=== PATIENT | female | born 1990 | race Caucasian/White ===

== ENCOUNTER 2020-02-12 15:52 | Outpatient (CLI) | payer OTHER, SELFPAY ==
--- NOTE | ~2020-02-12 | US_ITS ---
EXAMINATION: US OB <=14 wk fetus w TV DATE: 02/12/2020 16:42 INDICATION: First trimester dating and viability assessment TECHNIQUE: Real-time pelvic transabdominal and transvaginal ultrasound was performed. COMPARISON: None. FINDINGS: The uterus measures 8.7 x 5.2 x 5.8 cm. There is an intrauterine gestational sac. A yolk s ac is identified. heart motion is identified measuring 144 beats per minute (bpm) by M-mode Dop pler. The crown rump length measures 1.2 cm , which correlates with an estimated gestational ag e of 8 weeks and 0 day(s) (+/-) 4 day(s). The right ovary measures 4.2 x 2.8 x 2.9 cm. The left ovary measures 3.0 x 1.4 x 1.6 cm. There is no free fluid in the pelvis. IMPRESSION: 1. Live intrauterine with an estimated gestational age of 8 weeks and 0 day(s) (+/-) 4 day( s) and an estimated delivery date of 09/23/2020. Reviewed, dictated and finalized at location A. IMPRESSION: 1. Live intrauterine with an estimated gestational age of 8 weeks and 0 day(s) (+/-) 4 day(s) and an estimated delivery date of 09/23/2020.
== END 2020-02-12 15:53 | disposition home or self-care (01) ==
PROVIDERS: PCP Internal Medicine; Visit Provider Obstetrics & Gynecology Gynecology
DX: Z36.89 Encounter for other specified antenatal screening (principal); N96 Recurrent pregnancy loss; Z3A.08 8 weeks gestation of pregnancy
CPT/HCPCS: 76801; 76817

== ENCOUNTER → 2020-04-25 15:13 | Outpatient (CLI) | payer OTHER, SELFPAY ==
--- NOTE | ~2020-04-25 | US_ITS ---
EXAMINATION: US OB /maternal detail DATE: 04/25/2020 15:53 INDICATION: survey TECHNIQUE: Multiple obstetric sonographic images performed. FINDINGS: 02/12/2020 There is a single living fetus in breech presentation. The placenta is anterior without placenta pre via. Amniotic fluid volume is subjectively normal. cardiac activity and movement is noted with a heart rate of 167 beats per minute. The following anatomy was identified as normal: 4 chamber heart (ventricular outflow tracts not visualized due to early gestation age.) 3 vessel cord cord insertion kidneys urinary bladder stomach spine diaphragm ventricles cisterna magna cerebellum The following biometric data were obtained: BPD: 43mm corresponds to gestational age 19 weeks 0 days. Head circumference: 161 mm corresponds to gestational age 19 weeks 0 days. Abdominal circumference: 122 mm corresponds to gestational age 17 weeks 6 days. Femur length: 26 mm corresponds to gestational age 17 weeks 6 days. Head circumference to abdominal circumference ratio: 1.32 (normal range for expected gestational age is 1.08-1.27). Estimated weight: 220 grams +/- 33 grams using Hadlock method. IMPRESSION: 1: Single living intrauterine with an estimated gestational age of 18weeks 3days by initial ultrasound measurements, with an EDC of 09/23/2020 in breech presentation. 2. Survey limited for evaluation of ventricular outflow tracts. Otherwise, survey unremarkable . Reviewed, dictated and finalized at location A. IMPRESSION: 1: Single living intrauterine with an estimated gestational age of 18 weeks 3days by initial ultrasound measurements, with an EDC of 09/23/2020 in br eech presentation. 2. Survey limited for evaluation of ventricular outflow tracts. Otherwise, fet al survey unremarkable.
== END ==
PROVIDERS: Visit Provider Obstetrics & Gynecology Gynecology
DX: Z36.89 Encounter for other specified antenatal screening (principal); Z3A.18 18 weeks gestation of pregnancy
CPT/HCPCS: 76805

== ENCOUNTER → 2020-05-26 15:25 | Outpatient (CLI) | payer OTHER, SELFPAY ==
--- NOTE | ~2020-05-26 | US_ITS ---
US OB limited 05/26/2020 15:50 Indication: Evaluate ventricular outflow tracts, not seen on prior screening examination Procedure: High-resolution Limited obstetrical ultrasound Comparison: 04/25/2020 Findings: There is a single living intrauterine in vertex presentation. heart rate is 161 bpm. Placenta is anterior without previa. Amniotic fluid is subjectively normal. Ventricular out flow tracts are within normal limits. Impression: 1: Single living intrauterine in vertex presentation. 2: Normal four-chamber heart and ventricular outflow tracts. Reviewed, dictated and finalized at location A. Impression: 1: Single living intrauterine in vertex presentation. 2: Normal four-chamber heart and ventricular outflow tracts.
== END ==
PROVIDERS: Visit Provider Nurse Practitioner
DX: Z36.9 Encounter for antenatal screening, unspecified (principal); Z3A.00 Weeks of gestation of pregnancy not specified
CPT/HCPCS: 76815

== ENCOUNTER 2020-08-30 20:08 | Inpatient (IN) | payer OTHER, SELFPAY ==
[2020-08-30] VITALS (32 sets, daily range): BP systolic 157–181; BP diastolic 88–119; PULSE 64–86; TEMP 36.9; O2SAT 95–100; BMI 22.4
[2020-08-30 18:23] LABS: Creatinine Urine 162.8 mg/dL
[2020-08-30 18:26] LABS: Add Urine Microscopic? YES; Appearance Urine Clear (Clear); Bacteria Urine 1+ /hpf; Bilirubin Urine Negative (Negative); Blood Urine Negative (Negative); Color Urine Yellow (Yellow); Glucose Urine UA Negative (Negative); Ketones Urine Negative (Negative); Leukocyte Esterase Ur Negative LEU/UL (NEGATIVE); Mucus Urine Rare /lpf; Nitrate Urine Negative (Negative); Protein Urine 3+ mg/dL (Negative); RBC Urine 0-2 /hpf (0-2); Specific Grav Ur 1.019 (1.001-1.035); Squamous Epithelial Cell Urine Rare /hpf (Few); Urobilinogen Urine Negative mg/dL (<2.0); WBC Urine 0-3 /hpf (0-3)
[2020-08-30 18:48] LABS: Total Protein Urine Random > 600 mg/dL
[2020-08-30 18:55] LABS: Basophils Percent Auto 0.4 % (0.2-1.2); Eosinophils Absolute Auto 0.1 K/mm3 (0-0.3); Eosinophils Percent Auto 1.1 % (0-4.4); Hematocrit 35.2 % (37.0-47.0); Hemoglobin 12.4 g/dL (12.0-15.0); Immature Granulocyte Absolute 0.05 K/mm3 (0.00-0.031); Immature Granulocyte Percent A 0.5 % (0-0.5); Lymphocytes Absolute Auto 1.89 K/mm3 (0.9-3.2); Lymphocytes Percent Auto 18.1 % (18.3-44.2); Mean Corpuscular HGB Conc 35.2 g/dl (32-36); Mean Corpuscular Hemoglobin 31.8 pg (26-34); Mean Corpuscular Volume 90.3 fl (80-100); Mean Platelet Volume 12.8 fl (7.4-10.4); Monocytes Absolute Auto 0.9 K/mm3 (0.1-0.6); Monocytes Percent Auto 8.3 % (2.6-8.5); Neutrophils Absolute Auto 7.5 K/mm3 (1.3-6.7); Neutrophils Percent Auto 71.6 % (45.5-73.1); Platelet Count Result 133 k/mm3 (150-375); Red Cell Distribution Width 13.1 % (11.5-14.5); White Blood Count 10.4 K/mm3 (4.5-10.0)
[2020-08-30 19:05] LABS: Alanine Aminotransferase 18 U/L (4-35); Alkaline Phosphatase 182 U/L (38-126); Anion Gap 8 mmol/L (8-16); Aspartate Amino Transferase 36 U/L (14-36); Bilirubin,Total 0.4 mg/dL (0.2-1.3); Blood Urea Nitrogen 8 mg/dL (7-17); Calcium 8.9 mg/dL (8.4-10.2); Carbon Dioxide 21 mmol/L (22-30); Chloride 105 mmol/L (98-107); Estimated Glomerular Filt Rate > 60; Glucose 86 mg/dL (65-105); Potassium 4.1 mmol/L (3.4-5.0); Sodium 134 mmol/L (137-145); Uric Acid 7.6 mg/dL (2.5-7.5)
[2020-08-30] MEDS: LABETALOL HCL INJ 100 MG/20 ML VIAL 20 MG IV PUSH (19:15)
[2020-08-30] MEDS: LABETALOL HCL INJ 100 MG/20 ML VIAL 40 MG IV PUSH ×2 (19:28→19:57)
--- NOTE | 2020-08-30 20:37 | WPDOBADMIT ---
Obstetrics - Admit Note Admission Note: record reviewed. No pertinent additions to the history and/or any subsequent changes in the physical findings that are not consistent with the expected course of the were found. Additions to the history and/or subsequent changes in the physical findings follow. Sent from office with elevated BP's. Patient with no PIH symptoms. Good FM. BP's decreased with HTN protocol of labetalol. Labs with increased protein in urine and elevated uric acid. Recommend delivery. Cervadil tonight and high dose pitocin in am.
[2020-08-30] MEDS: LABETALOL HCL 100 MG TABLET PO (20:47)
[2020-08-30] MEDS: AMPICILLIN 2 GM/NS 100 ML 2 GM/100 ML BAG IVPB (20:48)
[2020-08-30] MEDS: LACTATED RINGERS 1,000 ML 125 ML IV CONT (20:49)
[2020-08-30] MEDS: NIFEdipine 30 MG TAB.ER.24 PO (21:18)
[2020-08-30] MEDS: DINOPROSTONE 10 MG VAG INSERT VAGINAL (21:36)
[2020-08-30] MEDS: ZOLPIDEM TARTRATE (*CRX) 5 MG TABLET PO (22:34)
[2020-08-30] MEDS: FAMOTIDINE 20 MG/2 ML VIAL IV PUSH (22:51)
[2020-08-30] MEDS: hydrALAZINE HCL 20 MG/ML VIAL 5 MG IV PUSH (23:46)
[2020-08-31] VITALS (208 sets, daily range): BP systolic 124–173; BP diastolic 60–121; PULSE 27–137; RESP 16–18; TEMP 36.6–37.9; O2SAT 81–100
[2020-08-31] MEDS: hydrALAZINE HCL 20 MG/ML VIAL 10 MG IV PUSH (00:18)
--- NOTE | 2020-08-31 00:23 | LDADM ---
This patient, Freya Castellanos, was admitted to Labor/Delivery/Recovery 107 on 08/30/20 at 20:08. Plans for labor, pain management and were discussed with patient. Patient/family oriented to hospital policies and general routines including ID bracelet, bed and alarms, visiting hours, pain management, procedures, bathroom and other care routines, personal items, smoking policy, room service/diet and guest tray routines, security routines, and visiting hours. Patient/Family are encouraged to report perceived risks to care and to ask questions if they do not understand what they are told or what they should do. See OBIX for further documentation.
[2020-08-31] MEDS: LABETALOL HCL 100 MG TABLET PO ×6 (00:58→21:31)
[2020-08-31] MEDS: AMPICILLIN 1 GM/NS 50 ML 1 GM/50 ML BAG IVPB ×6 (00:59→21:31)
[2020-08-31] MEDS: fentaNYL CITRATE INJ (*CRX) 100 MCG/2 ML VIAL 50 MCG IV PUSH ×2 (01:06→03:45)
[2020-08-31] MEDS: ONDANSETRON INJ 4 MG/2 ML VIAL IV PUSH (05:13)
--- NOTE | 2020-08-31 07:49 | PM.OBPNLAB ---
Pain Control Date/time seen: 08/31/20 07:[address] one dose of cytotec 25mcg then plan AROM and pitocin at noon.
[2020-08-31] MEDS: miSOPROStol 25 MCG TABLET VAGINAL (08:28)
[2020-08-31 08:53] LABS: Rapid Plasma Reagin Non-Reactive (NonReactive)
[2020-08-31] MEDS: OXYTOCIN 30 UNITS/NS 500 ML 30 UNITS/500 ML BAG IV CONT (13:09)
--- NOTE | 2020-08-31 14:34 | WPDANESEPP ---
Anes - Eval Pre Procedure Procedure: Labor Epidural Date/Time: 08/31/20 14:34 Pre Op Diagnosis: [facility] Patient Data Age: 30 Gender: F Height: 1.7 m Weight: 115.7 kg Last Vital Signs Temp 37.2 C 08/31/20 14:30 Pulse 85 08/31/20 14:32 Resp 18 08/31/20 12:48 BP 153/94 H 08/31/20 14:32 Pulse Ox 97 08/30/20 21:15 Allergies Allergy/AdvReac Type Severity Reaction Status Date / Time No Known Allergies Allergy Verified 08/24/20 14:28 Home Medications Medication Instructions Recorded Confirmed Type ergocalciferol (vitamin D2) 1,250 mcg PO WEEKLY 08/24/20 08/24/20 History [Vitamin D2] prenat.vits,mirna,[id number] 1 tablet PO DAILY 08/24/20 08/24/20 History [ #2] Laboratory Tests 08/30/20 08/30/20 08/30/20 17:49 17:49 17:49 WBC 10.4 K/mm3 H K/mm3 (4.5-10.0) RBC 3.90 M/mm3 L M/mm3 (4.2-5.4) Hgb 12.4 g/dL g/dL (12.0-15.0) Hct 35.2 % L % (37.0-47.0) MCV 90.3 fl fl (80-100) MCH 31.8 pg pg (26-34) MCHC 35.2 g/dl g/dl (32-36) RDW 13.1 % % (11.5-14.5) Plt Count 133 k/mm3 L k/mm3 (150-375) MPV 12.8 fl H fl (7.4-10.4) Immature Gran % (Auto) 0.5 % % (0-0.5) Neut % (Auto) 71.6 % % (45.5-73.1) Lymph % (Auto) 18.1 % L % (18.3-44.2) [place] % (Auto) 8.3 % % (2.6-8.5) Eos % (Auto) 1.1 % % (0-4.4) Baso % (Auto) 0.4 % % (0.2-1.2) Lymph # (Auto) 1.89 K/mm3 K/mm3 (0.9-3.2) [place] # (Auto) 0.9 K/mm3 H K/mm3 (0.1-0.6) Eos # (Auto) 0.1 K/mm3 K/mm3 (0-0.3) Baso # (Auto) 0.0 K/mm3 K/mm3 (0.0-0.1) Abs Immat Gran (auto) 0.05 K/mm3 H K/mm3 (0.00-0.031) Absolute Neuts (auto) 7.5 K/mm3 H K/mm3 (1.3-6.7) Absolute Nucleated RBC 0.0 K/mm3 K/mm3 (0.0-0.012) Nucleated RBC % 0.0 % % (0.0-0.2) Sodium Potassium Chloride Carbon Dioxide Anion Gap BUN Creatinine Estim Creat Clear Calc Estimated GFR Glucose Uric Acid Calcium Total Bilirubin AST ALT Alkaline Phosphatase Total Protein Albumin Urine Color Yellow (Yellow) Urine Appearance Clear (Clear) Urine pH 6.0 (5.0-9.0) Ur Specific [place] 1.019 (1.001-1.035) Urine Protein 3+ mg/dL H mg/dL (Negative) Urine Glucose (UA) Negative mg/dL mg/dL (Negative) Urine Ketones Negative mg/dL mg/dL (Negative) Ur Blood (Man) Negative (Negative) Urine Nitrate Negative (Negative) Urine Bilirubin Negative (Negative) Urine Urobilinogen Negative mg/dL mg/dL (<2.0) Ur Leukocyte Esterase Negative SEFERINO/UL SEFERINO/UL (NEGATIVE) Urine RBC 0-2 /hpf /hpf (0-2) Urine WBC 0-3 /hpf /hpf (0-3) Ur Squamous Epith Cells Rare /hpf /hpf (Few) Urine Bacteria 1+ /hpf H /hpf Urine Mucus Rare /lpf /lpf U Random Total Protein > 600 mg/dL mg/dL Urine Creatinine 162.8 mg/dL mg/dL RPR Blood Type Antibody Screen 08/30/20 08/30/20 08/30/20 17:49 18:43 18:43 WBC RBC Hgb Hct MCV MCH MCHC RDW Plt Count MPV Immature Gran % (Auto) Neut % (Auto) Lymph % (Auto) [place] % (Auto) Eos % (Auto) Baso % (Auto) Lymph # (Auto) [place] # (Auto) Eos # (Auto) Baso # (Auto) Abs Immat Gran (auto) Absolute Neuts (auto)
[2020-08-31] MEDS: LACTATED RINGERS 1,000 ML 125 ML IV CONT (15:30)
[2020-08-31] MEDS: FAMOTIDINE 20 MG/2 ML VIAL IV PUSH (20:16)
[2020-09-01] VITALS (20 sets, daily range): BP systolic 106–167; BP diastolic 70–116; PULSE 69–132; RESP 16–18; TEMP 36.6–37.3; O2SAT 95–100
--- NOTE | 2020-09-01 00:46 | PM.OBPRVD ---
OB - Delivery Note Procedure Delivery date: 09/01/20 events: Pre-Eclampsia Intrapartal events: Ineffective Pushing Induction method: AROM, per misoprostol protocol, per pitocin protocol and per cervidil protocol Delivery monitor: external FHT, external uterine and internal uterine Route of delivery: forceps Indication for instrumentation: maternal exhaustion Laceration Description: Vaginal - 2nd Degree Delivery repair: vicryl Estimated blood loss (mL): 400 Anesthesia type: Epidural Disposition: floor Baby Date of : 09/01/20 Time of : 12:04 Weeks of gestation at delivery: 36 gender: Male Weight (pounds): 6 Weight (ounces): 7 presentation: vertex position: Right Occiput Anterior Placenta delivery description: Spontaneous cord vessel description: 3 Vessels and Clamped/Cut score one minute: 8 score five minutes: 9
[2020-09-01] MEDS: OXYTOCIN 30 UNITS/NS 500 ML 30 UNITS/500 ML BAG 125 UNITS IV CONT (00:47)
[2020-09-01] MEDS: ACETAMINOPHEN 325 MG TABLET 650 MG PO ×2 (01:43→10:52)
[2020-09-01] MEDS: LABETALOL HCL 100 MG TABLET PO ×2 (01:43→05:50)
[2020-09-01] MEDS: BENZOCAINE 20% AER SPR (*SP) 56 GM CAN 1 SPRAY TOPICAL (02:47)
[2020-09-01] MEDS: WITCH HAZEL 40 PADS 1 PAD TOPICAL (02:47)
[2020-09-01] MEDS: MAGNESIUM SULF 20GM/WATER500ML 500 ML 50 MG IV CONT (03:00)
--- NOTE | 2020-09-01 04:16 | PC.NURSE ---
Placenta to go to [facility] for pathology review.
[2020-09-01] MEDS: LACTATED RINGERS 1,000 ML 125 ML ×2 (07:30→14:30)
--- NOTE | 2020-09-01 07:30 | PC.NURSE ---
PT introductions made and plan of care discussed per post , PIH, magnesium sulfate administration, daily care activities, pumping, baby at [facility] and pain management. PT verbalized understanding of such care
--- NOTE | 2020-09-01 07:31 | WPDANLDPN2 ---
Anes-Prog Note L&D Date/Time: 09/01/20 07:31 Comfortable throughout: labor and delivery Neuraxial method: epidural Epidural/Spinal procedure site: clean & non-tender Neuro status: Neuro function grossly intact. Cardiovascular status: normal Respiratory status: normal Airway patency: baseline Mental status: baseline Post-Op hydration status: normal Vital Signs: Last Vital Signs Temp 36.8 C 09/01/20 03:15 Pulse 85 09/01/20 05:50 Resp 16 09/01/20 03:15 BP 139/92 H 09/01/20 03:15 Pulse Ox 97 09/01/20 00:00 Pain score (VAS): 11/06 I/O: Intake & Output 08/31/20 08/31/20 09/01/20 15:59 23:59 07:59 Intake Total 1674 627 [id number] Output Total 1025 Balance 1100 100 275 Post-procedural complaints: none Patient feedback: Patient satisfied with anesthetic care.
--- NOTE | 2020-09-01 07:51 | PM.OBPNVD ---
OB - PN: Subj Subjective Date/time seen: 09/01/20 07:51 Patient comments: pain well controlled and other (lightheaded this am ) baby status: NICU (doing well) OB - PN: Obj Data Labs CBC & Chem 7: 08/30/20 17:49 08/30/20 17:49 Labs: Laboratory Results - last 24 hr 08/30/20 18:43 RPR Non-reactive OB - PN A/P Assessment and Plan (1) (normal spontaneous vaginal delivery): Code(s): O80 - Encounter for full-term uncomplicated delivery Status: Acute Assessment and Plan: continue pp care (2) Preeclampsia: Code(s): O14.90 - Unspecified pre-eclampsia, unspecified trimester Status: Acute Assessment and Plan: BP stable on Labetalol 100mg q 4. Will try to barreto to q 6. Continue Magnesium and close monitoring. Time Spent With Patient Time: Total time spent is greater than 50% in coordination of care (as documented) at patient's floor/unit and/or counseling patient: Exam : Bimanual exam- vagina & uterus: other (Uterus firm, nt @U)
[2020-09-01] MEDS: DOCUSATE SODIUM 100 MG CAPSULE (10:50)
[2020-09-01] MEDS: IBUPROFEN 600 MG TABLET PO ×3 (10:51→23:50)
[2020-09-01] MEDS: MULTIVIT/MIN/PREN/FOL AC/IRON TABLET 1 TAB PO (10:51)
[2020-09-01] MEDS: POLYSACCHARIDE IRON COMPLEX 150 MG CAPSULE PO ×2 (10:53→16:42)
[2020-09-01] MEDS: LANOLIN (LANSINOH) 7.5 GM CREAM 1 APPLIC TOPICAL (10:54)
[2020-09-01] MEDS: miSOPROStol 200 MCG TABLET 800 MCG (11:40)
--- NOTE | 2020-09-01 11:40 | PC.NURSE ---
Nacho Joiner RN L&D arrived upon request to help with expelling clots and massaging uterus. Aware of Dr Vallecillo's orders for pitocin and cytotec. 800mcg of cytotec was placed rectally with out difficulty. Pad weighed and pitocin hung. PT alert and awake and pt care was explained to pt and to renny through the care.
[2020-09-01 12:13] LABS: Basophils Absolute Auto 0.1 K/mm3 (0.0-0.1); Basophils Percent Auto 0.3 % (0.2-1.2); Hemoglobin 7.2 g/dL (12.0-15.0); Immature Granulocyte Absolute 0.14 K/mm3 (0.00-0.031); Immature Granulocyte Percent A 0.6 % (0-0.5); Lymphocytes Absolute Auto 1.46 K/mm3 (0.9-3.2); Lymphocytes Percent Auto 6.7 % (18.3-44.2); Mean Corpuscular HGB Conc 34.3 g/dl (32-36); Mean Corpuscular Hemoglobin 32.1 pg (26-34); Mean Corpuscular Volume 93.8 fl (80-100); Mean Platelet Volume 12.1 fl (7.4-10.4); Monocytes Absolute Auto 1.4 K/mm3 (0.1-0.6); Monocytes Percent Auto 6.6 % (2.6-8.5); Neutrophils Absolute Auto 18.6 K/mm3 (1.3-6.7); Neutrophils Percent Auto 85.8 % (45.5-73.1); Platelet Count Result 159 k/mm3 (150-375); Red Blood Count 2.24 M/mm3 (4.2-5.4); Red Cell Distribution Width 13.5 % (11.5-14.5); White Blood Count 21.7 K/mm3 (4.5-10.0)
[2020-09-01 12:37] LABS: Fibrinogen 218 mg/dl (215-510)
[2020-09-01] MEDS: HYDROcodone/acetaminophen (*CRX) 5-325 MG TABLET 1 TAB PO ×2 (12:47→16:43)
[2020-09-01] MEDS: SENNA/DOCUSATE SODIUM TABLET 2 TAB PO (22:01)
[2020-09-02] VITALS (15 sets, daily range): BP systolic 136–170; BP diastolic 74–98; PULSE 75–92; RESP 14–18; TEMP 36.8–38.1; O2SAT 97–100
[2020-09-02 06:15] LABS: Basophils Percent Auto 0.2 % (0.2-1.2); Eosinophils Absolute Auto 0.1 K/mm3 (0-0.3); Eosinophils Percent Auto 0.8 % (0-4.4); Immature Granulocyte Percent A 0.7 % (0-0.5); Lymphocytes Absolute Auto 2.65 K/mm3 (0.9-3.2); Lymphocytes Percent Auto 18.5 % (18.3-44.2); Mean Corpuscular HGB Conc 33.3 g/dl (32-36); Mean Corpuscular Hemoglobin 31.8 pg (26-34); Mean Corpuscular Volume 95.4 fl (80-100); Mean Platelet Volume 12.3 fl (7.4-10.4); Monocytes Absolute Auto 1.2 K/mm3 (0.1-0.6); Monocytes Percent Auto 8.2 % (2.6-8.5); Neutrophils Absolute Auto 10.3 K/mm3 (1.3-6.7); Neutrophils Percent Auto 71.6 % (45.5-73.1); Platelet Count Result 119 k/mm3 (150-375); Red Blood Count 1.73 M/mm3 (4.2-5.4); Red Cell Distribution Width 13.9 % (11.5-14.5); White Blood Count 14.3 K/mm3 (4.5-10.0)
[2020-09-02 06:17] LABS: Hematocrit 16.5 % (37.0-47.0); Hemoglobin 5.5 g/dL (12.0-15.0)
[2020-09-02 06:30] LABS: Fibrinogen 231 mg/dl (215-510)
--- NOTE | 2020-09-02 07:49 | PM.OBPNVD ---
OB - PN: Subj Subjective Date/time seen: 09/02/20 07:49 Patient comments: other (feels better this am) baby status: NICU OB - PN: Obj Data Labs CBC & Chem 7: 09/02/20 05:52 08/30/20 17:49 Labs: Laboratory Results - last 24 hr 09/01/20 09/01/20 09/02/20 11:55 11:56 05:52 WBC 21.7 H 14.3 H RBC 2.24 L 1.73 L Hgb 7.2 L D 5.5 L* Hct 21.0 L 16.5 L* MCV 93.8 95.4 MCH 32.1 31.8 MCHC 34.3 33.3 RDW 13.5 13.9 Plt Count 159 119 L MPV 12.1 H 12.3 H Immature Gran % (Auto) 0.6 H 0.7 H Neut % (Auto) 85.8 H 71.6 Lymph % (Auto) 6.7 L 18.5 [place] % (Auto) 6.6 8.2 Eos % (Auto) 0.0 0.8 Baso % (Auto) 0.3 0.2 Lymph # (Auto) 1.46 2.65 [place] # (Auto) 1.4 H 1.2 H Eos # (Auto) 0.0 0.1 Baso # (Auto) 0.1 0.0 Abs Immat Gran (auto) 0.14 H 0.10 H Absolute Neuts (auto) 18.6 H 10.3 H Absolute Nucleated RBC 0.0 0.0 Nucleated RBC % 0.0 0.0 Fibrinogen 218 09/02/20 05:52 WBC RBC Hgb Hct MCV MCH MCHC RDW Plt Count MPV Immature Gran % (Auto) Neut % (Auto) Lymph % (Auto) [place] % (Auto) Eos % (Auto) Baso % (Auto) Lymph # (Auto) [place] # (Auto) Eos # (Auto) Baso # (Auto) Abs Immat Gran (auto) Absolute Neuts (auto) Absolute Nucleated RBC Nucleated RBC % Fibrinogen 231 OB - PN A/P Assessment and Plan (1) (normal spontaneous vaginal delivery): Code(s): O80 - Encounter for full-term uncomplicated delivery Status: Acute (2) Preeclampsia: Code(s): O14.90 - Unspecified pre-eclampsia, unspecified trimester Status: Acute Assessment and Plan: BP stable diuresis good (3) hemorrhage: Code(s): O72.1 - Other immediate hemorrhage Status: Acute Assessment and Plan: resolved with cytotec and pitocin Hb 5/5 plan 2 units PRBC Time Spent With Patient Time: Total time spent is greater than 50% in coordination of care (as documented) at patient's floor/unit and/or counseling patient: Exam : Bimanual exam- vagina & uterus: other (Uterus firm, nt @U)
[2020-09-02] MEDS: IBUPROFEN 600 MG TABLET PO (08:01)
[2020-09-02] MEDS: POLYSACCHARIDE IRON COMPLEX 150 MG CAPSULE PO ×2 (08:01→16:12)
[2020-09-02] MEDS: MULTIVIT/MIN/PREN/FOL AC/IRON TABLET 1 TAB PO (08:01)
[2020-09-02] MEDS: SODIUM CHLORIDE 0.9% IV 250 ML 30 ML IV CONT (10:00)
[2020-09-02] MEDS: LABETALOL HCL 100 MG TABLET PO ×2 (12:06→17:55)
[2020-09-02] MEDS: ACETAMINOPHEN 325 MG TABLET 650 MG PO ×2 (12:07→20:20)
--- NOTE | 2020-09-02 13:15 | PC.NURSE ---
Patient viewed the discharge video Mother & Baby Care, The First Two Weeks . Patient was given the opportunity and encouraged to ask questions. Patient verbalized understanding of information shared and has been given the mother/baby guide for home reference.
[2020-09-02] MEDS: WITCH HAZEL 40 PADS 1 PAD TOPICAL (16:12)
[2020-09-02] MEDS: BENZOCAINE 20% AER SPR (*SP) 56 GM CAN 1 SPRAY TOPICAL (16:12)
[2020-09-02] MEDS: SENNA/DOCUSATE SODIUM TABLET 2 TAB PO (22:10)
[2020-09-02] MEDS: miSOPROStol 200 MCG TABLET 1000 MCG RECTAL (22:12)
[2020-09-03] VITALS (12 sets, daily range): BP systolic 133–174; BP diastolic 86–112; PULSE 76–100; RESP 15–16; TEMP 36.6–38.2; O2SAT 98–100
[2020-09-03] MEDS: LABETALOL HCL 100 MG TABLET PO ×2 (05:46)
[2020-09-03 06:20] LABS: Hematocrit 23.2 % (37.0-47.0); Mean Corpuscular HGB Conc 34.5 g/dl (32-36); Mean Corpuscular Hemoglobin 31.5 pg (26-34); Mean Corpuscular Volume 91.3 fl (80-100); Mean Platelet Volume 11.1 fl (7.4-10.4); Platelet Count Result 125 k/mm3 (150-375); Red Blood Count 2.54 M/mm3 (4.2-5.4); Red Cell Distribution Width 13.6 % (11.5-14.5); White Blood Count 12.7 K/mm3 (4.5-10.0)
[2020-09-03] MEDS: MULTIVIT/MIN/PREN/FOL AC/IRON TABLET 1 TAB PO (07:36)
[2020-09-03] MEDS: POLYSACCHARIDE IRON COMPLEX 150 MG CAPSULE PO (07:36)
[2020-09-03] MEDS: IBUPROFEN 600 MG TABLET PO (07:39)
--- NOTE | 2020-09-03 09:55 | PM.OBPNVD ---
OB - PN: Subj Subjective Date/time seen: 09/03/20 09:55 Patient comments: no complaints baby status: NICU OB - PN: Obj Data Labs CBC & Chem 7: 09/03/20 05:45 08/30/20 17:49 Labs: Laboratory Results - last 24 hr 08/30/20 09/03/20 18:43 05:45 WBC 12.7 H RBC 2.54 L Hgb 8.0 L Hct 23.2 L MCV 91.3 MCH 31.5 MCHC 34.5 RDW 13.6 Plt Count 125 L MPV 11.1 H Blood Type O Positive Antibody Screen Negative Crossmatch See Detail OB - PN A/P Assessment and Plan (1) hemorrhage: Code(s): O72.1 - Other immediate hemorrhage Status: Acute Assessment and Plan: Hb 8 one episode of clot last pm and cytotec given normal pp flow since then recommend iron BID x 8 wks low grade temp during and just after blood transfusion no evidence of infection will call if elevated temp or signs of infection (2) Preeclampsia: Code(s): O14.90 - Unspecified pre-eclampsia, unspecified trimester Status: Acute Assessment and Plan: Good diuresis No symptoms BP increased again change labetalol to 200 mg q6 will check BP several times per day and call if >160/110 follow up in office this Saturday or Saturday (3) (normal spontaneous vaginal delivery): Code(s): O80 - Encounter for full-term uncomplicated delivery Status: Acute Assessment and Plan: stable Plan day: 2 Plan: discharge home Time Spent With Patient Time: Total time spent is greater than 50% in coordination of care (as documented) at patient's floor/unit and/or counseling patient: Exam : Bimanual exam- vagina & uterus: other (Uterus firm, nt @U)
--- NOTE | 2020-09-03 09:59 | PM.OBDSVD ---
DS: Admitting Diagnosis Admitting Diagnosis Admitting Diagnosis: IUP 36 6/7 weeks preeclampsia DS: Discharge Diagnosis Discharge Diagnosis (1) hemorrhage: Code(s): O72.1 - Other immediate hemorrhage Status: Acute (2) Preeclampsia: Code(s): O14.90 - Unspecified pre-eclampsia, unspecified trimester Status: Acute (3) (normal spontaneous vaginal delivery): Code(s): O80 - Encounter for full-term uncomplicated delivery Status: Acute OB - DS: Summary OB Procedures : Ultrasound OB Procedures Intrapartum: Spontaneous Vag Delivery OB Procedures: : Transfusion Peripartum Data Infant Delivery Method: Natural Vaginal Laceration Description: Perineal - 2nd Degree complications: transfusion and uterine atony Status at Discharge Functional status at discharge: independent ambulation Overall status at discharge: patient is progressing back to baseline Time Spent with Patient Time attestation: Total time spent providing and/or coordinating discharge services: DS: Data Data Completed and Pending Labs on day of discharge: Labs from last 24 hours 09/03/20 08/30/20 05:45 18:43 WBC 12.7 H RBC 2.54 L Hgb 8.0 L Hct 23.2 L MCV 91.3 MCH 31.5 MCHC 34.5 RDW 13.6 Plt Count 125 L MPV 11.1 H Blood Type O Positive Antibody Screen Negative Crossmatch See Detail Discharge Plan Discharge Attending physician on discharge: Marla Vallecillo Discharging Clinician: Marla Vallecillo Anticipated Discharge Date/Time: 09/03/20 13:00 Patient Disposition: Home, Self-Care Activity: may shower and pelvic rest Diet: regular Discharge Instructions: Take BP TID-QID and call if >160/110 call for elevated temp or signs of infection Patient Instructions: Antibiotic Form Stand Alone Forms: General Discharge Information Follow-up/Referrals: Marla Vallecillo MD [Physician] - Call for Appointment (BP check Saturday or Saturday) Discharge Medications: New polysaccharide iron complex 150 mg iron Capsule 150 mg PO BIDWM Qty: 60 RF: 1 labetalol 100 mg Tablet 200 mg PO Q6HR Qty: 100 RF: 1 Continued ergocalciferol (vitamin D2) [Vitamin D2] 1,250 mcg (50,000 unit) Capsule 1,250 mcg PO WEEKLY RF: 0 #2 Tablet 1 tablet PO DAILY RF: 0 Date of admission: 08/30/20 20:08 Primary Care Provider: SongDolly Admitting Provider: Marla Vallecillo Attending physician on admission: Marla Vallecillo Condition: Stable
[2020-09-03] MEDS: LABETALOL HCL 100 MG TABLET 200 MG PO (12:17)
[2020-09-03] MEDS: NIFEdipine 30 MG TAB.ER.24 PO (14:12)
--- NOTE | 2020-09-03 17:54 | PC.NURSE ---
Pt. out on therapeutic pass to visit baby at [facility] accompanied by . Labetolol 200mg sent with patient, instructions given.
--- NOTE | 2020-09-03 22:07 | PC.NURSE ---
09/03/2020 at 2054 Patient returned from visiting baby.
[2020-09-03] MEDS: LABETALOL HCL 100 MG TABLET 300 MG PO (23:58)
[2020-09-04 03:56] VITALS: BP 131/90; PULSE 90; RESP 16; TEMP 37.1; O2SAT 99
[2020-09-04 05:52] VITALS: PULSE 91
[2020-09-04] MEDS: ACETAMINOPHEN 325 MG TABLET 650 MG PO (05:52)
[2020-09-04] MEDS: LABETALOL HCL 100 MG TABLET 300 MG PO ×2 (05:52→12:18)
[2020-09-04 05:55] VITALS: BP 130/83; PULSE 71; RESP 18; TEMP 36.9; O2SAT 98
[2020-09-04] MEDS: MULTIVIT/MIN/PREN/FOL AC/IRON TABLET 1 TAB PO (07:32)
[2020-09-04] MEDS: POLYSACCHARIDE IRON COMPLEX 150 MG CAPSULE PO (07:32)
[2020-09-04] MEDS: MEASLES,MUMPS,RUBELLA VACCINE 0.5 ML VIAL (07:33)
[2020-09-04 07:45] VITALS: BP 125/81; PULSE 75; RESP 16; TEMP 36.9; O2SAT 98
--- NOTE | 2020-09-04 11:03 | PM.OBPNVD ---
OB - PN: Subj Subjective Date/time seen: 09/04/20 11:03 doing well no complaints OB - PN: Obj Data Labs CBC & Chem 7: 09/03/20 05:45 08/30/20 17:49 OB - PN A/P Assessment and Plan (1) hemorrhage: Code(s): O72.1 - Other immediate hemorrhage Status: Acute (2) Preeclampsia: Code(s): O14.90 - Unspecified pre-eclampsia, unspecified trimester Status: Acute Assessment and Plan: BPs stable d/c home with procardia 30 xl qday and labetalol 300 mg every 6 hours (3) Forceps delivery: Code(s): O75.9 - Complication of labor and delivery, unspecified Status: Acute Time Spent With Patient Time: Total time spent is greater than 50% in coordination of care (as documented) at patient's floor/unit and/or counseling patient: Exam GI: Other: ff below umbilicus
[2020-09-04 12:00] VITALS: BP 144/94; PULSE 76
[2020-09-04 12:18] VITALS: PULSE 76
[2020-09-04] MEDS: NIFEdipine 30 MG TAB.ER.24 PO (12:18)
[2020-09-05 09:12] VITALS: BP 134/77; PULSE 79; RESP 20; TEMP 36.9; O2SAT 100
--- NOTE | 2020-09-16 12:02 | PM.DS ---
DS: Admitting Diagnosis Admitting Diagnosis Admitting Diagnosis: PIH DS: Discharge Diagnosis Discharge Diagnosis (1) Forceps delivery: Code(s): O75.9 - Complication of labor and delivery, unspecified Status: Acute (2) Preeclampsia: Qualifiers: Trimester: third trimester Qualified Code(s): O14.93 - Unspecified pre-eclampsia, third trimester Code(s): O14.90 - Unspecified pre-eclampsia, unspecified trimester Status: Acute (3) hemorrhage: Qualifiers: hemorrhage type: unspecified Qualified Code(s): O72.1 - Other immediate hemorrhage Code(s): O72.1 - Other immediate hemorrhage Status: Acute DS: Summary Time Spent with Patient Time attestation: Total time spent providing and/or coordinating discharge services: Exam Const: General: cooperative : Bimanual Exam- Adnexa, other: No adnexal tenderness Other: firm fundus below umbilicus Discharge Plan Discharge Attending physician on discharge: Marla Vallecillo Discharging Clinician: Marla Vallecillo Anticipated Discharge Date/Time: 09/03/20 13:00 Patient Disposition: Home, Self-Care Activity: may shower and pelvic rest Diet: regular Discharge Instructions: Take BP TID-QID and call if >160/110 call for elevated temp or signs of infection Education: Mom and Baby Guide Given to: Mother Follow-Up: Call your delivering provider's office for an appointment to be seen in: 1 Week Mom and baby should come to the [facility] for the follow-up appointment. Appointment Date/Time: September 05, 2020 at 9:00 am What to expect at your follow-up visit: Blood Pressure Check Physical Assessment Call [phone] if you are unable to keep your appointment time. BREAST CARE: * Wear a snug supportive bra. * For engorgement discomfort: Breast Feeding: * Apply warm moist washcloths * Express milk as needed to relieve engorgement * For sore nipples: * Identify correct latch-on * Apply warm moist washcloths before and after nursing * Air dry nipples after nursing * May apply Lansinoh cream to nipples EPISIOTOMY/PERINEAL CARE: * Until bleeding stops, use your regan bottle after urinating * Change your pad frequently throughout the day * You may take sitz baths several times a day (fill your bathtub with warm water and soak for 20 minutes.) Do NOT bathe in the water * No tub baths until seen by your physician - You may shower ACTIVITY: * Rest as much as possible. * Do not exercise or lift anything heavier than your baby (such as laundry or other children.) * Avoid stairs or driving as much as possible. * Do not put anything into the vagina. No douching, tampons, or sexual activity until seen by physician. NOTIFY PHYSICIAN IF YOU HAVE ANY QUESTIONS OR IF ANY OF THE FOLLOWING SYMPTOMS OCCUR: * If your episiotomy or incision becomes red, swollen, or more painful than what you have experienced in the hospital. * If your vaginal bleeding becomes foul smelling. * If your vaginal bleeding becomes more heavy than a period or if your bleeding changes from pink to bright red. However, you may pass an occasional walnut-sized clot once or twice for the first week . * If you experience a sharp, shooting pain in you calves. * If you discover a hard, reddened area on your breast or if you experience flu-like symptoms. DIET: * Eat regular, well-balanced meals. * Drink plenty of fluids daily. If , drink to thirst. Stand Alone Forms: General Discharge Information Follow-up/Referrals: Marla Vallecillo MD [Physician] - Call for Appointment (BP check Saturday or Saturday) Discharge Medications: New polysaccharide iron complex 150 mg iron Capsule 150 mg PO BIDWM Qty: 60 RF: 1 labetalol 100 mg Tablet 300 mg PO Q6HR Qty: 90 RF: 0
== END 2020-09-04 12:34 | disposition home or self-care (01) | DRG 807 ==
LOC: ANHOBOP 20:09 → ANHLDR 20:09 → ANHOB2 09-01 03:13
PROVIDERS: Admitting Provider Obstetrics & Gynecology Gynecology; PCP Internal Medicine; Visit Provider Obstetrics & Gynecology Gynecology
DX: O14.94 Unspecified pre-eclampsia, complicating childbirth (principal); Z37.0 Single live birth; Z3A.36 36 weeks gestation of pregnancy; O36.8330 Maternal care for abnormalities of the fetal heart rate or rhythm, third trimester, not applicable or unspecified; O70.1 Second degree perineal laceration during delivery; O75.81 Maternal exhaustion complicating labor and delivery; O72.1 Other immediate postpartum hemorrhage
CPT/HCPCS: 36415; 36430; 80053; 81001; 82570; 84156; 84550; 85025; 85027; 85362; 85384; 86592; 86850; 86900; 86901; 86923; 87086; 87088; 90710; A9270; J0290; J0360; J2405; J2590; J2795; J3010; J3475; J7030; J7050; J7120; P9016

== ENCOUNTER 2022-10-10 17:12 | Emergency (ER) | payer OTHER, SELFPAY ==
[2022-10-10 17:24] VITALS: BP 125/76; PULSE 93; RESP 18; TEMP 36.6; O2SAT 100
--- NOTE | 2022-10-10 17:35 | ED.URI ---
HPI - URI/Sore Throat General Chief Complaint: Upper Respiratory Infection Stated Complaint: vomiting Time Seen by Provider: 10/10/22 17:36 Source: patient Mode of arrival: ambulatory Limitations: no limitations History of Present Illness HPI Narrative: 32-year-old female presents with complaint of fatigue, body aches, nausea vomiting, headaches starting yesterday morning. Reports symptoms started mild and progressively gotten worse. States that she is vomiting every 3 hours. Afebrile. Is going out of town tomorrow on a plane is worried about vomiting at airport. Denies diarrhea. No URI symptoms. All systems reviewed and negative except as noted above. Related Data Allergies Allergy/AdvReac Type Severity Reaction Status Date / Time No Known Allergies Allergy Verified 10/10/22 17:25 Review of Systems Review of Systems: CONSTITUTIONAL: Denies fever, chills, or sweats. Reports fatigue. EYES: Denies visual changes, redness, or discharge. ENT: Denies rhinorrhea, congestion, sore throat, or otalgia. CARDIOVASCULAR: Denies chest pain, palpitations, or edema. RESPIRATORY: Denies cough or dyspnea. GASTROINTESTINAL: Denies abdominal pain . Reports nausea, vomiting. Denies diarrhea. GENITOURINARY: Denies dysuria or hematuria. SKIN: Denies rash or itching. MUSCULOSKELETAL: Denies back pain, joint pain, or myalgia. NEUROLOGIC: reports headache. Denies numbness, or weakness. PSYCHIATRIC: Denies anxiety or depression. All other systems reviewed are negative, except as documented in HPI. [facility] Past Medical History Medical History (Updated 10/10/22 @ 18:08 by Tammy Birggs NP) Forceps delivery Migraine Obesity Surgical History Surgical History (System 05/03/21 @ 10:56 by Estephanie Manrique) Hx of cholecystectomy Family History Family History Father Depression Hypertension Sibling Depression Grandparent Family history of malignant neoplasm of breast Family history of migraine headaches Carcinoma of colon Mother Hypertension Social History Social History (System 05/03/21 @ 10:56 by Estephanie Manrique) Smoking status: Never smoker Alcohol intake: current Substance use: never Gender identity (if verbalized by the patient): Female Spiritual care concerns: No Comments At time of signature, agree with nursing past medical, surgical, social and family history. There is no relevant family history pertinent to the presenting complaint. Exam Narrative: GENERAL: This is a well-nourished, well-developed patient. Patient ill-appearing but no distress. HEAD: normocephalic, atraumatic. EYES: PERRL. Sclera clear/white. Vision is grossly intact. EARS: External ears normal, auditory canals clear and without drainage, TMs normal without perforation. Hearing grossly intact. NOSE: External nose normal with no obvious nasal discharge, nares without redness, no rhinorrhea. THROAT: Mucous membranes moist, posterior pharynx clear. NECK: Neck supple, non-tender without lymphadenopathy, masses or thyromegaly. CARDIOVASCULAR: Regular rate and rhythm without murmurs, gallops, or rubs. RESPIRATORY: Clear to auscultation. Breath sounds equal bilaterally. No wheezes, rales, or rhonchi. GASTROINTESTINAL: Abdomen soft, non-tender, nondistended. Bowel sounds are active. No hepato-splenomegaly, or palpable masses. No guarding. SKIN: warm, Dry, intact with no suspicious lesions or rash, good texture and turgor. NEURO: awake, alert, and oriented to person, place and time. There were no obvious focal neurologic abnormalities. EXTREMITIES: No joint tenderness, effusion, or edema noted. Course Course Level of Care: Express Care Visit Vital Signs Vital signs: Vital Signs Temperature 36.6 C 10/10/22 17:24 Pulse Rate 93 10/10/22 17:24 Respiratory Rate 18 10/10/22 17:24 Blood Pressure 125/76 10/10/22 17:24 Pulse Oximetry 100 10/10/22 17:24 Oxygen
[2022-10-10] MEDS: ONDANSETRON HCL ODT 4 MG TABLET SUBLINGUAL (17:47)
== END 2022-10-10 18:10 | disposition home or self-care (01) ==
PROVIDERS: Emergency Provider Nurse Practitioner Family
DX: A08.4 Viral intestinal infection, unspecified (principal); E66.9 Obesity, unspecified; Z68.41 Body mass index [BMI] 40.0-44.9, adult
CPT/HCPCS: 87804; 99213; A9270; G0463

== ENCOUNTER 2022-11-02 09:20 | Emergency (ER) | payer OTHER, SELFPAY ==
[2022-11-02 09:32] VITALS: BP 131/68; PULSE 65; RESP 18; TEMP 37; O2SAT 98
[2022-11-02 09:33] VITALS: BP 131/68; PULSE 65; RESP 18; TEMP 37; O2SAT 98
--- NOTE | 2022-11-02 09:37 | ED.EYEPROB ---
HPI - Eye Problem General Chief complaint: Eye Problems Stated complaint: rt eye irritation Time Seen by Provider: 11/02/22 09:44 Source: patient Mode of arrival: ambulatory Limitations: no limitations History of Present Illness HPI Narrative: 32-year-old female presented for complaint of right eye irritation, onset today. She endorses it is itchy with mild swelling and it was crusted this morning. Denies injury. She denies vision changes, photophobia, headache, dizzy, nausea. She denies associated sinus congestion or pressure. Denies sick contacts. MD chief complaint: eye pain Related Data Allergies Allergy/AdvReac Type Severity Reaction Status Date / Time No Known Allergies Allergy Verified 11/02/22 09:33 Review of Systems Review of Systems: CONSTITUTIONAL: Denies body aches, fever, chills EYES:Endorses swelling, redness CARDIOVASCULAR: Denies chest pain, palpitations RESPIRATORY: Denies cough or dyspnea. GASTROINTESTINAL: Denies abdominal pain, nausea, vomiting, or diarrhea. SKIN: Denies rash, itching, or wounds. MUSCULOSKELETAL: Denies back pain, joint pain, or myalgia. NEUROLOGIC: Denies headache, numbness, tingling, or weakness. All systems reviewed & are unremarkable except as noted in HPI and below PMFSH Past Medical History Medical History Forceps delivery Migraine Obesity Surgical History Surgical History Hx of cholecystectomy Family History Family History Father Depression Hypertension Sibling Depression Grandparent Family history of malignant neoplasm of breast Family history of migraine headaches Carcinoma of colon Mother Hypertension Mother Patient's mother is in good health Hypertension Father Patient's father is in good health Hypertension Sibling Patient's brother is in good health Grandparent Carcinoma of colon Family history of malignant neoplasm of breast Social History Social History Smoking status: Never smoker Alcohol intake: current Substance use: never Gender identity (if verbalized by the patient): Female Spiritual care concerns: No Comments At time of signature, I have reviewed and agree with nursing past medical, surgical, social and family history unless otherwise noted. Please see nursing chart for further information. There is no relevant family history pertinent to the presenting complaint Exam Narrative: GENERAL: Well-appearing HEAD: Normocephalic, atraumatic. EYES: Right conjunctival injection, mild yellow crust to lashes, mild upper eye lid swelling. no erythema , tenderness, or signs of stye, PERRLA EOMI. Lid eversion showed no FB ENT: Mucous membranes pink and moist. No rhinorrhea. TMs normal bilaterally. Throat normal. Uvula midline. CHEST: Clear to auscultation. HEART: Regular rate and rhythm. ABDOMEN: Soft, nontender, nondistended SKIN: Warm, dry, no rash. Normal skin turgor. NEURO: No focal deficits. Alert and oriented x3 PSYCH: Normal affect. Course Course Emergency Course: Patient is aware of diagnosis, understands and agrees to treatment plan. Anticipatory guidance given. Patient agrees to follow-up as directed and is aware of reasons to seek care at the emergency department. Portions of this record may have been created with voice recognition software Level of Care: Express Care Visit Vital Signs Vital signs: Vital Signs Temperature 98.6 F 11/02/22 09:32 Pulse Rate 65 11/02/22 09:32 Respiratory Rate 18 11/02/22 09:32 Blood Pressure 131/68 11/02/22 09:32 Pulse Oximetry 98 11/02/22 09:32 Oxygen Delivery Room Air 11/02/22 09:32 Temperature 98.6 F 11/02/22 09:33 Pulse Rate 65 11/02/22 09:33 Respiratory Rate 18 11/02/22 09:33 Blood Pr
== END 2022-11-02 09:53 | disposition home or self-care (01) ==
PROVIDERS: Emergency Provider Nurse Practitioner Family
DX: H10.9 Unspecified conjunctivitis (principal); E66.9 Obesity, unspecified; Z68.33 Body mass index [BMI] 33.0-33.9, adult
CPT/HCPCS: 99213; G0463

== ENCOUNTER 2023-11-23 08:04 | Emergency (ER) | payer OTHER, SELFPAY ==
--- NOTE | ~2023-11-23 | XR_ITS ---
[id number] 11/23/2023 08:25 INDICATION: Left foot pain after recent fall PROCEDURE: 4 views left foot COMPARISON: No prior studies for comparison. FINDINGS: Fracture, dislocation or subluxation is not identified. The soft tissues appear within norm al limits. No foreign bodies are identified. IMPRESSION: 1: NO ACUTE BONE OR JOINT ABNORMALITY IDENTIFIED. Reviewed, dictated and finalized at location A. [employer]
--- NOTE | 2023-11-23 08:07 | ED.LOWEXIN ---
HPI - Extremity Injury (Lower) General Chief Complaint: Extremity Injury, Lower Stated Complaint: Falll Injury, Left Foot Pain Time Seen by Provider: 11/23/23 08:06 Source: patient Mode of arrival: ambulatory Limitations: no limitations History of Present Illness HPI Narrative: Freya is a 33-year-old female patient presenting to the clinic today with complaints of left foot pain after a fall last night. She reports she was coming down a step going into the garage and slipped on a toy a and fell and felt a pop and her left foot. Is having pain to the lateral foot Related Data Home Medications Medication Instructions Recorded Confirmed levonorgestrel 21 mcg/24 hours (8 See Rx Instructions .Route .COMPLEX 11/23/23 11/23/23 yrs) 52 mg intrauterine device (Mirena) sertraline 50 mg tablet 50 mg PO DAILY 11/23/23 11/23/23 Allergies Allergy/AdvReac Type Severity Reaction Status Date / Time No Known Allergies Allergy Verified 11/23/23 08:06 Review of Systems Review of Systems: Pertinent positives per HPI. Patient denies any fever, chills, rash, headache, visual changes, dizziness, cough, shortness of breath, chest pain, palpitations, nausea, vomiting, diarrhea, constipation, abdominal pain, or any urinary issues. [facility] Past Medical History Medical History Forceps delivery Migraine Obesity Surgical History Surgical History Hx of cholecystectomy Family History Family History Father Depression Hypertension Sibling Depression Grandparent Family history of malignant neoplasm of breast Family history of migraine headaches Carcinoma of colon Mother Hypertension Mother Patient's mother is in good health Hypertension Father Patient's father is in good health Hypertension Sibling Patient's brother is in good health Grandparent Carcinoma of colon Family history of malignant neoplasm of breast Social History Social History Smoking status: Never smoker Alcohol intake: current Substance use: never Gender identity (if verbalized by the patient): Female Spiritual care concerns: No Comments At the time of my signature, I reviewed and agree with the nursing past medical, surgical, social, and family history. There is no relevant family history pertinent to the patient complaint. Exam Narrative: General: Well-developed, well nourished, in no apparent distress Head: Normocephalic, atraumatic Eyes: Pupils equally round and reactive to light bilaterally, EOM intact, sclera and conjunctive clear, no discharge, lids normal Ears: TMs intact and clear, ear canals clear, no drainage, grossly hearing normal. Nose: Nares patent, no discharge, no inflammation, no sinus tenderness. Mouth: Oral pharynx without lesions or masses, good dentition, MMM. Neck: Supple, trachea midline, no enlargement of anterior or posterior cervical nodes, no thyroid masses or goiter palpable. Cardio: Regular rate and rhythm, s1 and s2 normal, no murmur appreciated. Resp: Clear to auscultation bilaterally, no rhonchi, rales, wheezing or rubs Course Course Emergency Course: Portions of this record may have been created with voice recognition software. Level of Care: Express Care Visit Vital Signs Vital signs: Vital signs reviewed MDM - Extremity Injury (Lower) MDM Narrative Medical decision making narrative: At the time of visit patient is resting comfortably on the exam table. Patient appears to be nontoxic. Diagnostics: X-ray of the left foot was performed-negative for any sign of fracture or malalignment. Plan: supportive measures were discussed with the patient and they voiced understanding discharge instructions and agrees to treatment plan. Return precau
[2023-11-23 08:16] VITALS: BP 119/76; PULSE 72; RESP 16; TEMP 36.9; O2SAT 100
== END 2023-11-23 08:42 | disposition home or self-care (01) ==
PROVIDERS: Emergency Provider Nurse Practitioner Family
DX: S93.602A Unspecified sprain of left foot, initial encounter (principal); W10.9XXA Fall (on) (from) unspecified stairs and steps, initial encounter
CPT/HCPCS: 73630; 99213; G0463

== ENCOUNTER 2024-07-12 14:09 | Emergency (ER) | payer OTHER, SELFPAY ==
[2024-07-12 14:26] VITALS: BP 128/76; PULSE 95; RESP 18; TEMP 38.4; O2SAT 100
[2024-07-12 14:27] VITALS: BP 128/76; PULSE 95; RESP 18; TEMP 38.4; O2SAT 100
--- NOTE | 2024-07-12 14:47 | ED.URI ---
HPI - URI/Sore Throat General Chief Complaint: Upper Respiratory Infection Stated Complaint: Body chills/ congestion/ vomited Time Seen by Provider: 07/12/24 14:15 Source: patient Mode of arrival: ambulatory Limitations: no limitations History of Present Illness HPI Narrative: 34-year-old female presents to [facility] with complaints of body aches, chills, dry cough, fever up to 101 and 1 episode of vomiting. Patient denies sick contacts reports that she did travel to [place] approximately 2 weeks ago. Patient denies runny nose, sore throat, ear pain, shortness of breath or wheezing. Patient is a nonsmoker. Patient has been taking [id number] medications with minimal relief. MD elicited complaint: fever, cough, rhinorrhea and nasal congestion Onset (ago): day(s) (1) Able to tolerate fluids by mouth: Yes Exacerbating factors: nothing Context: recent travel Related Data Home Medications Medication Instructions Recorded Confirmed levonorgestrel 21 mcg/24 hr (up to See Rx Instructions .Route .COMPLEX 11/23/23 07/12/24 8 years) 52 mg intrauterine device (Mirena) sertraline 50 mg tablet 50 mg PO DAILY 11/23/23 07/12/24 Allergies Allergy/AdvReac Type Severity Reaction Status Date / Time No Known Allergies Allergy Verified 07/12/24 14:27 Review of Systems Constitutional: Constitutional: Reports chills, Reports fatigue, Reports fever(s) and Denies weakness ENT: Denies vertigo, Denies dizziness, Denies epistaxis, Reports nasal congestion and Denies sore throat Cardiovascular: Cardiovascular: Denies chest pain Respiratory: Respiratory: Reports cough, Denies dyspnea and Denies wheezing Gastrointestinal: Gastrointestinal: Denies abdominal pain, Denies diarrhea, Reports nausea and Reports vomiting Integumentary/Breasts: Skin/Breast: Denies erythema and Denies rash Neurologic: Denies dizziness, Denies syncope and Denies headache(s) [facility] Past Medical History Medical History Forceps delivery Migraine Obesity Surgical History Surgical History Hx of cholecystectomy Family History Family History Father Depression Hypertension Sibling Depression Grandparent Family history of malignant neoplasm of breast Family history of migraine headaches Carcinoma of colon Mother Hypertension Mother Patient's mother is in good health Hypertension Father Patient's father is in good health Hypertension Sibling Patient's brother is in good health Grandparent Carcinoma of colon Family history of malignant neoplasm of breast Social History Social History Smoking status: Never smoker Alcohol intake: current Substance use: never Gender identity (if verbalized by the patient): Female Spiritual care concerns: No Comments At time of signature, I agree with nursing past medical, surgical, social and family history. There is no relevant family history pertinent to the presenting complaint. Exam Const: General: healthy appearing and no acute distress Nutritional Appearance: well nourished Orientation/consciousness: patient oriented x3 Limitations: no limitations HENMT: Head: normal to inspection Ears: external ears normal, TM's normal bilaterally and EAC's normal Face/Nose/Sinus: Normal external nose present Face and sinus: normal facial exam Mouth: Yes Normal oral and palatal mucosa present and Yes moist mucous membranes Throat: posterior oropharynx normal and uvula midline Eyes: Conjunctivae: conjunctivae normal Neck: Neck: normal visual inspection Resp: Effort & Inspection: normal respiratory effort and not labored Auscultation: clear to auscultation bilaterally, no crackles, no rales, no rhonchi and no wheezes Cardio: Rate: regular rate Rhythm: regular rhythm
[2024-07-12 14:50] LABS: EDCOVIDSCREEN Negative (Negative)
[2024-07-12 14:51] LABS: EDINFLUASCREEN Positive (Negative); EDINFLUBSCREEN Negative (Negative)
== END 2024-07-12 14:59 | disposition home or self-care (01) ==
PROVIDERS: Emergency Provider Nurse Practitioner Family
DX: J10.1 Influenza due to other identified influenza virus with other respiratory manifestations (principal); Z20.822 Contact with and (suspected) exposure to COVID-19; E66.9 Obesity, unspecified; Z68.34 Body mass index [BMI] 34.0-34.9, adult
CPT/HCPCS: 87635; 87804; 99213; G0463